=== PATIENT | female | born 1955 | race Caucasian/White ===

== ENCOUNTER → 2024-05-11 | Outpatient (CLI) | payer MEDICARE, BC ==
[~2024-05-11] MED LIST: ASPIR-LOW81 MG PO; ASPIRIN 81M81 MG/TA2 PO; ASPIRIN E.C. 8181 MG PO; CENTRUM1 TAB PO; COREG CR40 MG PO; COZAAR 25MG25 MG/TAB PO; COZAAR 50MG50 MG/TAB PO; CRESTOR10 MG PO; CRESTOR5 MG PO; EFFEXOR XR75 MG/CAP PO; ESTRACE PO; ESTRACE0.5 MG PO; FISH OIL CONC1000 MG PO; FISH OIL500 MG PO; FLEXERIL10 MG PO; FLONASE0.05 MG/AC NS; GLUCOPHAGE500 MG PO; INDERAL 20MG20 MG PO; KLONOPIN 0.5MG0.5 MG PO; METOPROLOL SUC100 MG PO; MULTIPLE VITAMI1 TAB PO; MVI PO; OMEGA-31000 MG PO; PREDNISONE20 MG PO; Triamcinolone 40 MG/ML 1 ML VIAL IJ ONE; VITAMIN D32000 IU PO
== END ==
LOC: COL.RAD 09:36
DX: M79.671 Pain in right foot (principal)
CPT/HCPCS: J0665; J3301